=== PATIENT | female | born 1965 | race Caucasian/White ===

== ENCOUNTER 2017-03-14 18:59 | Emergency (ER) | payer SELFPAY ==
[2017-03-14 19:06] VITALS: BMI 42.5
--- NOTE | 2017-03-14 19:46 | DR.GENAD ---
HPI - PCP Primary Care Physician: [facility] - HPI Comment HPI Comment: PATIENT HAVE HTN AND MIGRAINE HEADACHES. OUT OF MEDS. PROGRESSIVE HEADACHE AND ELEVATED BP. ALSO HAVING CHEST PAIN AND DIZZINESS. NO TRAUMA. NO FEVER. - Complaint/Symptoms Chief Complaint Doctors Comments: HEADACHE, DIZZINESS AND ELEVATED BP. OUT OF HER MEDICATIONS. Chief Complaint:: PT STATED SHE HAS A HEADACHE,BLURINESS,DIZZNESS, DOUBLE VISION AND NECK AND BACK PAIN. PT STATED SHE IS OUT OF ALL HER MEDS. - Nurses notes reviewed Nurses Notes Review: Yes - Source History Provided: Patient - Mode of Arrival Mode of Arrival: Ambulatory - Timing Onset of Chief Complaint: 03/12/17 Came on: Gradually - Duration Duration: Constant Duration: Days - Severity Severity: Moderate PMH - PMH Past Medical History: Yes Past Medical History: Anemia, Gout, Hypertension Past Surgical History: Yes Surgical History: Hysterectomy - Family History History of Family Medical Conditions: Yes Family Medical History: Diabetes Mellitus, [place], Hypertension - Social History Does patient currently use any type of tobacco product: No Have you used tobacco products in the last 12 months: No Type of Tobacco Use: None Does any household member use tobacco: Yes Alcohol Use: None Do you use any recreational Drugs:: No Lives With: Family Lives Where: Home - infectious screening In the last 2 months have you had wt loss of >10#?: NO Have you had fever, night sweats or hemotysis?: No Have you traveled outside the country in the last 6 months?: No Isolation: Standard ROS - Review of Systems Constitutional: Weakness, Fatigue. negative: Chills, Fever Eyes: No Symptoms Reported. negative: Eye Pain, Discharge ENTM: No Symptoms Reported. negative: Ear Pain, Nose Discharge, Nose Congestion , Throat Pain Respiratoy: No Symptoms Reported, Short of Breath. negative: Productive Cough, Non-Productive Cough, Wheezing, Hemoptysis Cardiovascular: No Symptoms Reported, Chest Pain Gastrointestinal/Abdominal: Nausea. negative: Abdominal Pain, Diarrhea, Vomiting Genitourinary: No Symptoms Reported. negative: Dysuria, Frequency, Hematuria Neurological: Headache, Weakness, Dizziness Musculoskeletal: Muscle Pain Integumentary: No Symptoms Reported Hematologic/Lymphatic: No Symptoms Reported Endocrine: No Symptoms Reported All Other Systems: Reviewed and Negative PE - Vital Signs Vitals: Temperature 97.9 F Pulse Rate [Right] 75 Pulse Rate 84 Respiratory Rate 20 Blood Pressure [Right Arm] 148/87 Blood Pressure 156/100 O2 Sat by Pulse Oximetry 96 - General Limitations: No Limitations General Appearance: Alert - Head Head Exam: Normal Inspection - Eyes Eye exam: Normal Appearance - ENT ENT Exam: Normal External Ear Exam External Ear Exam: Normal External Inspection TM/Canal Exam: Bilateral Normal Nose Exam: Normal Nose Exam Mouth Exam: Normal Inspection Throat Exam: Normal Inspection - Neck Neck Exam: Normal Inspection - Chest Chest Inspection: Symmetric Chest Wall Rise - Respiratory Respiratory Exam: Normal Lung Sounds Bilat Respiratory Exam: Bilateral Clear to Auscultation - Cardiovascular Cardiovascular Exam: Regular Rate, Normal Rhythm, Normal Heart Sounds - Abdominal Exam Abdominal Exam: Normal Inspection, Normal Bowel Sounds. negative: Tenderness - Extremities Extremities Exam: Normal Inspection - Back Back Exam: Normal Inspection - Neurologic Neurological Exam: Alert, Oriented X3, CN II-XII Intact, Normal Gait, Reflexes Normal. negative: Motor Sensory Deficit - Psychiatric Psychiatric Exam: Anxious - Skin Skin Exam: Normal Color MDM - Additional Information Additional Information Obtained From: Family - Differential Diagnosis Differential Diagnosis: HTN, MIGRAINE BAZZI, CHEST PAIN, DIZZINESS Course - Treatment Treatment: BP MEDS AND IM TORADOL FOR BAZZI IN ED. IMPROVED. - Reevaluation 1st: Improved - Education/Counseling Education/Counseling: Patient, Education Educated On: Treatment, Diagnosis, Needs for Follow Up ROR - Labs Reviewed Laboratory Results Reviewed?: Yes Result Diagrams: 03/14/17 20:20 03/14/17 20:20 Laboratory: WBC 8.5 X10^3/uL (3.6-10.0) 03/14/17 20:20 RBC 4.62 X10^6/uL (3.5-5.4) 03/14/17 20:20 Hgb 12.8 g/dL (12.0-16.0) 03/14/17 20:20 Hct 37.9 % (36.0-47.0) 03/14/17 20:20 MCV 82.1 fL (80.0-100.0) 03/14/17 20:20 MCH 27.8 pg (27.0-34.0) 03/14/17 20:20 MCHC 33.9 g/dL (33.0-35.0) 03/14/17 20:20 RDW 15.4 % (11.6-16.5) 03/14/17 20:20 Plt Count 281 X10^3/uL (150.0-450.0) 03/14/17 20:20 MPV 8.2 fL (7.4-11.0) 03/14/17 20:20 Neut % 68.0 % (42.0-75.0) 03/14/17 20:20 Lymph % 22.8 % (21.0-51.0) 03/14/17 20:20 [place] % 5.4 % (0.0-13.0) 03/14/17 20:20 Eos % 2.9 % (0.9-2.9) 03/14/17 20:20 Baso % 0.9 % (0.2-1.0) 03/14/17 20:20 Neut # 5.8 x10^3/uL (2.2-4.8) H 03/14/17 20:20 Lymph # 1.9 X10^3/uL (1.3-2.9) 03/14/17 20:20 [place] # 0.5 x10^3/uL (0.3-0.8) 03/14/17 20:20 Eos # 0.2 x10^3/uL (0.0-0.2) 03/14/17 20:20 Baso # 0.1 X10^3/uL (0.0-0.1) 03/14/17 20:20 Absolute Nucleated RBC 0.0 /100WBC 03/14/17 20:20 Sodium 143 mmol/L (136-145) 03/14/17 20:20 Corrected Sodium 143 mmol/L (136-145) 03/14/17 20:20 Potassium 3.4 mmol/L (3.5-5.1) L 03/14/17 20:20 Chloride 105 mmol/L (98-107) 03/14/17 20:20 Carbon Dioxide 29.8 mmol/L (21-32) 03/14/17 20:20 BUN 10 mg/dL (7-18) 03/14/17 20:20 Creatinine 0.88 mg/dL (0.55-1.02) 03/14/17 20:20 Est GFR (MDRD) Af Amer > 60 (>60) 03/14/17 20:20 Est GFR (MDRD) Non-Af > 60 (>60) 03/14/17 20:20 Glucose 118 mg/dL (65-99) H 03/14/17 20:20 Calcium 8.7 mg/dL (8.5-10.1) 03/14/17 20:20 Corrected Calcium TNP 03/14/17 20:20 Total Bilirubin 0.20 mg/dL (0.2-1.0) 03/14/17 20:20 AST 15 Units/L (15-37) 03/14/17 20:20 ALT 28 Units/L (12-78) 03/14/17 20:20 Alkaline Phosphatase 60 Units/L (46-116) 03/14/17 20:20 Creatine Kinase 46 Units/L (26-192) 03/14/17 20:20 CK-MB (CK-2) < 1.0 ng/mL (0-4.0) 03/14/17 20:20 CK/CKMB % Calc 2.2 % (<4) 03/14/17 20:20 Troponin I < 0.02 ng/mL (0-1.5) 03/14/17 20:20 Total Protein 7.4 g/dL (6.4-8.2) 03/14/17 20:20 Albumin 3.5 g/dL (3.4-5.0) 03/14/17 20:20 Globulin 3.9 g/dL (2.5-4.5) 03/14/17 20:20 Albumin/Globulin Ratio 0.9 Ratio (1.1-2.1) L 03/14/17 20:20 - XRAY XRAY Interpreted by: Radiologist XRAY Findings: REPORT DISCUSS WITH PATIENT INCLUDING INCIDENTAL FINDINGS ON CT. - Diagnosis Discharge Problem: Dizziness Hypertension Qualifiers: Hypertension type: essential hypertension Qualified Code(s): I10 - Essential ( primary) hypertension Headache Qualifiers: Headache type: unspecified Headache chronicity pattern: acute headache Intractability: intractable Qualified Code(s): R51 - Headache - Discharge Plan Disposition: 01 HOME, SELF-CARE Condition: Stable Prescriptions: Lisinopril 20 mg PO DAILY #30 tablet - Follow ups/Referrals Follow ups/Referrals: PREETI SYEKS [Primary Care Provider] - 03/15/17 - Instructions Instructions: Hypertension, [id number], Dizziness, [id number], Chest Pain Observation Additional Instructions: RETURN TO ED IF WORSE.
[2017-03-14] MEDS ORDERED: NIFEDIPINE CAP 10 MG PO ONE (20:14)
[2017-03-14] MEDS ORDERED: NIFEDIPINE CAP 10 MG ONE (20:22)
[2017-03-14 20:32] LABS: BASOPHILS # (AUTO) 0.1 X10^3/uL (0.0-0.1); BASOPHILS % (AUTO) 0.9 % (0.2-1.0); EOSINOPHILS # (AUTO) 0.2 x10^3/uL (0.0-0.2); EOSINOPHILS % (AUTO) 2.9 % (0.9-2.9); HEMATOCRIT 37.9 % (36.0-47.0); HEMOGLOBIN 12.8 g/dL (12.0-16.0); LYMPHOCYTES # (AUTO) 1.9 X10^3/uL (1.3-2.9); LYMPHOCYTES % (AUTO) 22.8 % (21.0-51.0); MEAN CORPUSCULAR HEMOGLOBIN 27.8 pg (27.0-34.0); MEAN CORPUSCULAR HGB CONC 33.9 g/dL (33.0-35.0); MEAN CORPUSCULAR VOLUME 82.1 fL (80.0-100.0); MEAN PLATELET VOLUME 8.2 fL (7.4-11.0); MONOCYTES # (AUTO) 0.5 x10^3/uL (0.3-0.8); MONOCYTES % (AUTO) 5.4 % (0.0-13.0); NEUTROPHILS # (AUTO) 5.8 x10^3/uL (2.2-4.8); PLATELET COUNT 281 X10^3/uL (150.0-450.0); RED BLOOD COUNT 4.62 X10^6/uL (3.5-5.4); RED CELL DISTRIBUTION WIDTH 15.4 % (11.6-16.5); WHITE BLOOD COUNT 8.5 X10^3/uL (3.6-10.0)
[2017-03-14 20:44] LABS: BLOOD UREA NITROGEN 10 mg/dL (7-18); CARBON DIOXIDE 29.8 mmol/L (21-32); CHLORIDE 105 mmol/L (98-107); COR NA(FOR HYPERGLY) 143 mmol/L (136-145); CREATININE 0.88 mg/dL (0.55-1.02); SODIUM 143 mmol/L (136-145); TROPONIN I < 0.02 ng/mL (0-1.5); eGFR BLACK RACES > 60 (>60); eGFR NON BLACK RACES > 60 (>60)
[2017-03-14 20:49] LABS: ALANINE AMINOTRANSFERASE 28 Units/L (12-78); ALBUMIN 3.5 g/dL (3.4-5.0); ALKALINE PHOSPHATASE 60 Units/L (46-116); ASPARTATE AMINO TRANSFERASE 15 Units/L (15-37); CALCIUM 8.7 mg/dL (8.5-10.1); CKMB % 2.2 % (<4); CREATINE KINASE 46 Units/L (26-192); CREATINE KINASE MB < 1.0 ng/mL (0-4.0); TOTAL PROTEIN 7.4 g/dL (6.4-8.2)
[2017-03-14] MEDS ORDERED: MICRO K EXTEN CAP 10 MEQ PO ONE ×2 (21:13→22:12)
--- NOTE | 2017-03-14 21:31 | CT ---
HISTORY: Headache. Dizziness. Blurry and double vision. Study: CT brain without contrast. Comparison: None. Technique: Multiple axial images of the brain were obtained from the skull base to the vertex without administra tion of IV contrast. Findings: No acute intraparenchymal hemorrhage or mass can be identified. There is a 3 x 2 x 1 cm e xtra-axial fluid collection in the subfrontal region on the left possibly reflecting an arachnoid or epidermoid cyst. No alteration in the attenuation of the brain parenchyma can be identified to sugge st acute or subacute ischemic change. The ventricular system is symmetric and nondilated. There are mucous retention cysts within the left and right maxillary sinus. The extracranial structures are gr ossly unremarkable. IMPRESSION: No acute intracranial process can be identified. There is a 3 x 2 x 1 cm extra-axial fluid collection in the subfrontal region on the left possibly re flecting an arachnoid or epidermoid cyst. If prior imaging is unavailable to document long-term stabi lity, then MR of the brain would be suggested further characterization. Reported By:
[2017-03-14] MEDS ORDERED: CATAPRES TAB 0.2 MG PO ONE (22:14)
[2017-03-14] MEDS ORDERED: TORADOL 60 MG VIAL IM ONE (22:15)
[2017-03-14] MEDS ORDERED: TORADOL 60 MG VIAL ONE (22:16)
[2017-03-14] MEDS ORDERED: CATAPRES TAB 0.2 MG ONE (22:16)
--- NOTE | 2017-03-14 22:56 | RAD ---
Macro and AP chest Indication: Chest pain Comparison: None available Findings: The lungs are clear and heart size is at upper limits of normal. No pleural effusion or pne umothorax. The trachea is midline. No acute osseous abnormality. Impression: No acute cardiopulmonary abnormality. Reported By:
[2017-03-14 23:13] VITALS: BP 148/87
== END 2017-03-14 23:17 | disposition home or self-care (01) ==
LOC: ER 18:59
DX: I10 Essential (primary) hypertension (principal); R42 Dizziness and giddiness; R51 Headache
CPT/HCPCS: 36415; 70450; 71010; 80053; 82550; 82553; 84484; 85025; 93005; 93010; 96372; 99283; 99285; J1885

== ENCOUNTER 2017-04-07 17:49 | Emergency (ER) | payer SELFPAY ==
[2017-04-07 17:54] VITALS: BMI 44.2
--- NOTE | 2017-04-07 18:25 | DR.GENAD ---
HPI - PCP Primary Care Physician: MONY - Complaint/Symptoms Chief Complaint:: PT. C/O RIGHT ARM PAIN WITH DECLINING STRENGTH TO HER HAND. PT. STATES HER RIGHT ARM IS TINGLY AND NUMB AND SOMETIMES THE WHOLE RIGHT SIDE OF HER BODY GOES NUMB. THIS HAS BEEN GOING ON X 6 MONTHS BUT THE PAIN TO HER RIGHT ARM HAS WORSENED. PT. GUARDING RIGHT ARM IN TRIAGE. 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, SPINE, AND LOWER BACK, HOLE AND CYST ON BRAIN?, PE Past Surgical History: Yes Surgical History: Hysterectomy - Family History History of Family Medical Conditions: Yes Family Medical History: Diabetes Mellitus, [place], Hypertension - Social History Does patient currently use any type of tobacco product: No Have you used tobacco products in the last 12 months: No Type of Tobacco Use: None Does any household member use tobacco: No Alcohol Use: None Do you use any recreational Drugs:: No Lives With: Friend Lives Where: Home - infectious screening In the last 2 months have you had wt loss of >10#?: NO Have you had fever, night sweats or hemotysis?: No Have you traveled outside the country in the last 6 months?: No Isolation: Standard ROS - Review of Systems Eyes: No Symptoms Reported ENTM: No Symptoms Reported Respiratoy: No Symptoms Reported Cardiovascular: No Symptoms Reported Gastrointestinal/Abdominal: No Symptoms Reported Genitourinary: No Symptoms Reported Neurological: Numbness (right upper extremity) Musculoskeletal: Joint Pain (right elbow) Integumentary: No Symptoms Reported Hematologic/Lymphatic: No Symptoms Reported Endocrine: No Symptoms Reported Psychiatric: No Symptoms Reported All Other Systems: Reviewed and Negative PE - Vital Signs Vitals: Temperature 97.4 F Pulse Rate 88 Respiratory Rate 18 Blood Pressure [Right Arm] 148/87 Blood Pressure 150/95 O2 Sat by Pulse Oximetry 94 - General General Appearance: Alert, In No Apparent Distress - Head Head Exam: Normal Inspection, Atraumatic - Eyes Eye exam: Normal Appearance, PERRL, EOMI - ENT ENT Exam: Normal Exam External Ear Exam: Normal External Inspection TM/Canal Exam: Bilateral Normal Nose Exam: Normal Nose Exam Mouth Exam: Normal Inspection Throat Exam: Normal Inspection - Neck Neck Exam: Normal Inspection, Full ROM - Chest Chest Inspection: Normal Inspection, Symmetric Chest Wall Rise - Respiratory Respiratory Exam: Normal Lung Sounds Bilat Respiratory Exam: Bilateral Clear to Auscultation - Cardiovascular Cardiovascular Exam: Regular Rate - Abdominal Exam Abdominal Exam: Normal Inspection, Normal Bowel Sounds Abdominal Tenderness: negative: RUQ, RLQ, LUQ, LLQ, Epigastrium, Suprapubic, Diffuse, Mild, Moderate, Severe, Other - Extremities Extremities Exam: Normal Inspection, Tenderness (right elbow) - Back Back Exam: Normal Inspection - Neurologic Neurological Exam: Alert, Oriented X3, CN II-XII Intact - Psychiatric Psychiatric Exam: Normal Affect - Skin Skin Exam: Warm, Dry, Intact ROR - XRAY XRAY Interpreted by: Radiologist (Cervical Spine: There is mild degenerative disc disease at C5-C6 and mild degenerative changes of the atlantodental inteval. No additional significant degenerative changes are appreciated. The unenhanced prevertebral and paraspinal soft tissues are grossly unremarkable. Visualized upper lungs are clear. Impression: Mild degenerative changes ) - Diagnosis Discharge Problem: DJD (degenerative joint disease) of cervical spine Qualifiers: Spinal osteoarthritis complication: with radiculopathy Qualified Code(s): M47.22 - Other spondylosis with radiculopathy, cervical region - Discharge Plan Condition: Stable - Follow ups/Referrals Follow ups/Referrals: PREETI SYKES [Primary Care Provider] - 3 days - Instructions
[2017-04-07] MEDS ORDERED: TORADOL 60 MG VIAL IM ONE (18:26)
[2017-04-07] MEDS ORDERED: TORADOL 60 MG VIAL ONE (18:43)
--- NOTE | 2017-04-07 18:49 | CT ---
CT cervical spine without contrast Indication: Right upper extremity pain/tingling Technique: Helical CT images of the cervical spine were obtained without IV contrast. Reformatted loreta ges in the coronal and sagittal planes were also generated for review. Comparison: None Findings: Vertebral body heights and alignment are normal. No acute fracture or subluxation is identi fied. There is mild degenerative disc disease at C5-C6 and mild degenerative changes of the atlantode ntal interval. No additional significant degenerative changes are appreciated. The unenhanced prevert ebral and paraspinal soft tissues are grossly unremarkable. Visualized upper lungs are clear. Impression: Mild degenerative changes, as above. If clinically warranted, further evaluation with MRI should be c onsidered. Reported By:
[2017-04-07 19:07] VITALS: BP 140/86
== END 2017-04-07 19:09 | disposition home or self-care (01) ==
LOC: ER 18:12
DX: M47.22 Other spondylosis with radiculopathy, cervical region (principal)
CPT/HCPCS: 72125; 96372; 99282; J1885

== ENCOUNTER 2017-07-15 22:45 | Emergency (ER) | payer BC ==
[2017-07-15 22:52] VITALS: BP 92/59; BMI 42.5
[2017-07-15] MEDS ORDERED: DUONEB 0.5 MG/3 MG NEB ONE ×2 (23:10→23:29)
[2017-07-15] MEDS ORDERED: DECADRON JET NEB (RESP USE) NEB ONE (23:10)
[2017-07-15] MEDS ORDERED: DUONEB 0.5 MG/3 MG ONE (23:11)
[2017-07-15] MEDS ORDERED: SOLU-Medrol 125 MG VIAL IVP ONE (23:11)
[2017-07-15] MEDS ORDERED: SOLU-Medrol 125 MG VIAL ONE (23:12)
[2017-07-15] MEDS ORDERED: DECADRON INJ ONE (23:12)
--- NOTE | 2017-07-15 23:12 | DR.GENAD ---
HPI - PCP Primary Care Physician: NFD - Complaint/Symptoms Chief Complaint Doctors Comments: Patient reports that she has had problems with breathing the past two days. She is using her inhaler but it is not helping. She denies cigarettes or fever. Chief Complaint:: DIFFICULTY BREATHING, WHEEZING Self Treatment fo Chief Complaint: INHALERS HAVE BEEN UNHELPFUL - Source History Provided: Patient - Mode of Arrival Mode of Arrival: Ambulatory - Timing Onset of Chief Complaint: 07/15/17 PMH - PMH Past Medical History: Yes Past Medical History: Anemia, Dyslipidemia, Gout, Hypertension, Renal Disease Past Medical History Comment: PULMONARY EMBOLI LAST APR Past Surgical History: Yes Surgical History: Hysterectomy, Tonsillectomy - Family History History of Family Medical Conditions: Yes Family Medical History: Diabetes Mellitus, [place], Hypertension - Social History Does patient currently use any type of tobacco product: No Have you used tobacco products in the last 12 months: No Type of Tobacco Use: None Does any household member use tobacco: Yes Alcohol Use: None Do you use any recreational Drugs:: No Lives With: Family Lives Where: Home - infectious screening In the last 2 months have you had wt loss of >10#?: NO Have you had fever, night sweats or hemotysis?: No Have you traveled outside the country in the last 6 months?: No Isolation: Standard ROS - Review of Systems Eyes: No Symptoms Reported ENTM: No Symptoms Reported Respiratoy: Non-Productive Cough Cardiovascular: No Symptoms Reported Gastrointestinal/Abdominal: No Symptoms Reported Genitourinary: No Symptoms Reported Neurological: No Symptoms Reported Musculoskeletal: No Symptoms Reported Integumentary: No Symptoms Reported Hematologic/Lymphatic: No Symptoms Reported Endocrine: No Symptoms Reported Psychiatric: No Symptoms Reported All Other Systems: Reviewed and Negative PE - Vital Signs Vitals: Temperature 97.9 F Pulse Rate 74 Respiratory Rate 20 Blood Pressure [Right Arm] 140/86 Blood Pressure 92/59 O2 Sat by Pulse Oximetry 93 - General Limitations: No Limitations General Appearance: Alert, In No Apparent Distress - Head Head Exam: Normal Inspection, Atraumatic - Eyes Eye exam: Normal Appearance, PERRL, EOMI - ENT ENT Exam: Normal Exam External Ear Exam: Normal External Inspection TM/Canal Exam: Bilateral Normal Nose Exam: Normal Nose Exam, Sinus Tenderness Mouth Exam: Normal Inspection Throat Exam: Normal Inspection - Neck Neck Exam: Normal Inspection - Chest Chest Inspection: Normal Inspection, Symmetric Chest Wall Rise - Respiratory Respiratory Exam: Normal Lung Sounds Bilat Respiratory Exam: Bilateral Wheezing (prolonged expiratory phase), Bilateral Decreased Breath Sounds - Cardiovascular Cardiovascular Exam: Regular Rate, Normal Rhythm - Abdominal Exam Abdominal Exam: Normal Inspection, Normal Bowel Sounds Abdominal Tenderness: negative: RUQ, RLQ, LUQ, LLQ, Epigastrium, Suprapubic, Diffuse, Mild, Moderate, Severe, Other - Extremities Extremities Exam: Normal Inspection, Full ROM - Back Back Exam: Normal Inspection, Full ROM - Neurologic Neurological Exam: Alert, Oriented X3, CN II-XII Intact - Psychiatric Psychiatric Exam: Normal Affect - Skin Skin Exam: Warm, Dry, Intact Course - Reevaluation 2nd: Improved - Education/Counseling Educated On: Treatment, Diagnosis, Prognosis, Needs for Follow Up ROR - XRAY XRAY Interpreted by: Radiologist (Chest: The heart size is borderline enlarged, unchanged. Trachea is midline. No focal airspace opacity, pleural effusion or pneumothorax. No acute osseous abnormality.) - Diagnosis Discharge Problem: Acute asthma exacerbation Qualifiers: Asthma severity: moderate Asthma persistence: unspecified Qualified Code(s): J45.901 - Unspecified asthma with (acute) exacerbation - Discharge Plan Condition: Stable - Follow ups/Referrals Follow ups/Referrals: NFD,None [Primary Care Provider] - 3 days - Instructions
--- NOTE | 2017-07-15 23:31 | RAD ---
AP chest. Indication: Difficulty breathing Comparison: 03/14/2017 Findings: Heart size is borderline enlarged, unchanged. Trachea is midline. No focal airspace opacity , pleural effusion or pneumothorax. No acute osseous abnormality. Impression: Borderline cardiomegaly without acute airspace disease or CHF. No change from prior exam. Reported By:
[2017-07-15] MEDS ORDERED: NS 1000 ML 1,000 ML IV SCH (23:45)
[2017-07-15] MEDS ORDERED: MAGNESIUM SULFATE 1 GM/100 mL PREMIX 2 GM/200 ML BAG IV SCH (23:51)
[2017-07-15] MEDS ORDERED: NS 1000 ML 1,000 ML ONE (23:52)
[2017-07-15] MEDS ORDERED: MAGNESIUM SULFATE 50% INJ ONE (23:53)
[2017-07-15] MEDS ORDERED: NS 100 ML IV 200 ML IV ONE (23:53)
== END 2017-07-16 01:12 | disposition home or self-care (01) ==
LOC: ER 22:57
DX: J45.901 Unspecified asthma with (acute) exacerbation (principal)
CPT/HCPCS: 71045; 94640; 96365; 96367; 96374; 96375; 99283; A4222; J1100; J2930; J3475; J7620

== ENCOUNTER → 2017-08-10 | Outpatient (CLI) | payer BC ==
[2017-07-15 22:52] VITALS: BP 92/59
--- NOTE | 2017-08-10 11:56 | MRI ---
MRI lumbar spine without contrast Indication: Degenerative disc disease Technique: Multisequence, multiplanar MR images of the lumbar spine were obtained without IV contrast . Comparison: None Findings: Hemangiomas are noted within the L1, L3 and L5 vertebral bodies. There are bilateral L5 par s defects with grade 1 associated anterolisthesis of L5 on S1. Vertebral body heights, alignment and marrow signal are otherwise normal. No acute fracture, subluxation or suspicious osseous lesion is id entified. The conus terminates normally at T12-L1. The cauda equina is unremarkable. The imaged sarita maria del carmen soft tissues are grossly unremarkable. T10-T11, T11-T12, T12-L1, L1-L2: Unremarkable L2-L3: Mild broad-based disc bulge and facet arthropathy without significant canal or foraminal steno sis. L3-L4: Mild broad-based disc bulge and facet arthropathy results in mild canal narrowing without sign ificant foraminal stenosis. L4-L5: Moderate broad-based disc bulge and facet arthropathy results in mild canal and bilateral fora fran stenosis. L5-S1: Mild broad-based disc bulge and facet arthropathy in combination with anterolisthesis of L5 on S1 results in moderate-severe bilateral foraminal stenosis without significant canal narrowing. Impression: Multilevel degenerative changes of the lumbar spine, most significant at L5-S1 where there is moderat e-severe bilateral neural foraminal stenosis secondary to L5 spondylolysis with grade 1 associated sp ondylolisthesis and moderate spondylosis. Reported By:
== END ==
LOC: RAD 10:24
PROVIDERS: ATTEND Psychiatry & Neurology Neurology
DX: M51.37 Other intervertebral disc degeneration, lumbosacral region (principal)
CPT/HCPCS: 72148

== ENCOUNTER → 2017-08-17 | Outpatient (CLI) | payer BC | LOC: RT 09:51 | PROVIDERS: ATTEND Psychiatry & Neurology Neurology | DX: M51.37 Other intervertebral disc degeneration, lumbosacral region (principal) | CPT/HCPCS: 95910 ==